=== PATIENT | male | born 1995 | race Caucasian/White ===

== ENCOUNTER 2018-09-30 09:53 | Emergency (ER) | payer OTHER ==
[~2018-09-30] VITALS: Ht 175.3 cm; Wt 65.8 kg
[2018-09-30] MEDS ORDERED: KEFLEX500 M1 PO (10:52)
[2018-09-30] MEDS ORDERED: BACTRIM DS TAB1 EACH PO (10:52)
[2018-09-30 10:59] VITALS: BP 139/83
== END 2018-09-30 11:00 | disposition home or self-care (01) ==
LOC: M.ERS 09:53
DX: L02.416 Cutaneous abscess of left lower limb (principal)